=== PATIENT | female | born 1945 | race Hispanic/Latino ===

== ENCOUNTER 2017-12-20 07:54 | Inpatient (IN) | payer MEDICARE ==
[2017-12-18 09:00] LABS: BASOPHILS % 0.4 % (0.0-1.0); EOSINOPHILS # (AUTO) 0.5 (0.0-0.4); EOSINOPHILS % 6.9 % (0.0-6.0); HEMATOCRIT 35.3 % (34.2-44.1); HEMOGLOBIN 11.5 g/dL (12.0-16.0); LYMPHOCYTES # (AUTO) 2.1 (1.0-3.2); LYMPHOCYTES % 31.4 % (18.0-39.1); MEAN CORPUSCULAR HEMOGLOBIN 28.2 pg (28-32); MEAN CORPUSCULAR HGB CONC 32.6 g/dL (31-35); MEAN CORPUSCULAR VOLUME 86.5 fL (81-99); MONOCYTES # (AUTO) 0.6 (0.2-0.8); MONOCYTES % 9.1 % (4.4-11.3); NEUTROPHILS # (AUTO) 3.5 (2.1-6.9); NEUTROPHILS % 52.1 % (38.7-80.0); PLATELET COUNT 283 x10e3/uL (140-360); RED BLOOD COUNT 4.08 x10e6/uL (3.6-5.1); RED CELL DISTRIBUTION WIDTH 14.7 % (11.7-14.4)
--- NOTE | 2017-12-18 09:51 | Diagnostic Imaging Report ---
PROCEDURE: X-RAY CHEST, TWO VIEWS COMPARISON: None. INDICATIONS: preop bladder surgery FINDINGS: The lungs are well-inflated. No focal airspace consolidation, pleural effusion, or pneumothorax. Calcified granuloma in the right upper lung. Tortuosity and atherosclerotic calcification of the thoracic aorta with an otherwise normal cardiomediastinal contour. No acute osseous abnormality. Scoliotic curvature of the thoracolumbar spine with multilevel degenerative disc changes. CONCLUSION: No acute cardiopulmonary abnormality. Dictated by: Jeff Haney M.D. on 12/18/2017 at 9:53 Electronically approved by: Jeff Haney M.D. on 12/18/2017 at 9:53
[~2017-12-20] VITALS: Ht 157.5 cm; Wt 81.6 kg
[~2017-12-20 07:54] MED LIST: LOVASTATIN20 MG PO; METOPROLOL TART25 MG PO; MULTIVITAMINS1 EAC7 PO; PENICILLIN PO
--- OUTSIDE RECORDS SUMMARY | 2017-12-20 07:56 | XMS REPORT ---
Author Author [facility] Address Unknown Phone Unavailable Care Team Providers Care Script Reader Name Role Phone DONTE HUTSON Unavailable Unavailable Problems This patient has no known problems. Allergies, Adverse Reactions, Alerts This patient has no known allergies or adverse reactions. Medications This patient has no known medications. Results Test Description Test Time Test Comments Text Results Atomic Results Result Comments CHEST 2 VIEWS [place] [address] Patient Name: BELLA MONGE MR #: [id number] : 1945 Age/Sex: 72/F Req #: [id number] Adm Physician: Ordered by: DONTE HUTSON MD Report #: [id number] Location: OR Room/Bed: Procedure: [id number] DX/ CHEST 2 VIEWS Exam Date: 12/18/17 Exam Time: 923 REPORT STATUS: Signed PROCEDURE: X-RAY CHEST, TWO VIEWS COMPARISON: None. INDICATIONS: preop bladder surgery FINDINGS: The lungs are well-inflated. No focal airspace consolidation, pleural effusion, or pneumothorax. Calcified granuloma in the right upper lung. Tortuosity and atherosclerotic calcification of the thoracic aorta with an otherwise normal cardiomediastinal contour. No acute osseous abnormality. Scoliotic curvature of the thoracolumbar spine with multilevel degenerative disc changes. CONCLUSION: No acute cardiopulmonary abnormality. Dictated by: Be Powers M.D. on 12/18/2017 at 9:53 Electronically approved by: Be Powers M.D. on 12/18/2017 at 9:53 Dictated By: BE POWERS MD 2 Transcribed By: HUEY on 12/18/17952 COPY TO: DONTE HUTSON MD
[2017-12-20] MEDS ORDERED: CEFOXITIN SOD 1 GM VIAL ONE (08:28)
[2017-12-20] MEDS ORDERED: CLINDAMYCIN 600MG/D5W 50ML 50 ML IV ONE (08:28)
[2017-12-20] MEDS ORDERED: LISINOPRIL10 MG PO (08:35)
[2017-12-20] MEDS ORDERED: METHYLENE BLUE 1% INJ 10 ML VIAL INJ ONE (08:57)
[2017-12-20] MEDS ORDERED: IOPAMIDOL 610MG/1ML 300 MG/ML VIAL IV ONE (08:57)
[2017-12-20] MEDS ORDERED: BUPIVACAINE 0.25%/EPI 30ML SDV INJ ONE (08:57)
[2017-12-20] MEDS ORDERED: BACITRACIN 50,000 UNIT VIAL ONE (08:57)
[2017-12-20] MEDS ORDERED: SEVOFLURANE INHAL SOLN 250 ML PEN BTL ONE (11:51)
[2017-12-20] MEDS ORDERED: ROCURONIUM BROMIDE 10 MG/ML 5ML VIAL ONE (11:51)
[2017-12-20] MEDS ORDERED: DEXAMETHASONE SOD PHOS INJ 4 MG/ML VIAL ONE (11:51)
[2017-12-20] MEDS ORDERED: LIDOCAINE HCL 2% LOCAL INJ 5 ML SDV VIAL INJ ONE (11:51)
[2017-12-20] MEDS ORDERED: ONDANSETRON HCL INJ 2 MG/ML VIAL ONE (11:51)
[2017-12-20] MEDS ORDERED: PROPOFOL IV EMULSION 10 MG/ML 20 ML VIAL ONE (11:51)
[2017-12-20] MEDS ORDERED: HYDROMORPHONE 1MG/1ML INJ IV PRN (12:15)
[2017-12-20] MEDS ORDERED: PROMETHAZINE HCL (IM) 25 MG/ML VIAL IM PRN (12:15)
[2017-12-20] MEDS ORDERED: TRAMADOL HCL 50 MG TAB PO PRN (12:15)
[2017-12-20] MEDS ORDERED: ONDANSETRON HCL INJ 2 MG/ML VIAL IV PRN (12:15)
[2017-12-20] MEDS ORDERED: HYDROMORPHONE 2MG/ML INJ IV PRN (12:30)
[2017-12-20] MEDS ORDERED: ONDANSETRON HCL 4 MG ORAL DISINTEGRATING TAB SL PRN (12:30)
[2017-12-20] MEDS ORDERED: FENTANYL CITRATE/PF 100MCG/2 ML INJ ONE ×2 (12:40→14:44)
[2017-12-20] MEDS: D5.45%NS/KCL 20MEQ 1,000 ML IV SCH ×2 (16:30→22:12)
[2017-12-20] MEDS: METOPROLOL TARTRATE 25 MG TAB PO SCH (17:00)
[2017-12-20] MEDS: CEFOXITIN SOD 1 GM VIAL IV SCH ×2 (17:41→23:50)
[2017-12-20] MEDS ORDERED: CEFOXITIN 1GM/ DEXTROSE 50ML 50 ML IV SCH (18:00)
[2017-12-20 18:03] VITALS: BP 129/61
[2017-12-20 20:00] VITALS: BP 125/61
[2017-12-20 22:24] VITALS: BP 125/61
[2017-12-21] VITALS: BP 112/53
[2017-12-21 04:00] VITALS: BP 126/60
[2017-12-21 07:04] LABS: BASOPHILS % 0.1 % (0.0-1.0); EOSINOPHILS % 0.2 % (0.0-6.0); HEMATOCRIT 29.5 % (34.2-44.1); LYMPHOCYTES # (AUTO) 1.5 (1.0-3.2); LYMPHOCYTES % 13.4 % (18.0-39.1); MEAN CORPUSCULAR HEMOGLOBIN 28.5 pg (28-32); MEAN CORPUSCULAR HGB CONC 33.9 g/dL (31-35); MONOCYTES # (AUTO) 0.8 (0.2-0.8); NEUTROPHILS # (AUTO) 8.8 (2.1-6.9); NEUTROPHILS % 78.9 % (38.7-80.0); PLATELET COUNT 261 x10e3/uL (140-360); RED BLOOD COUNT 3.51 x10e6/uL (3.6-5.1); RED CELL DISTRIBUTION WIDTH 14.6 % (11.7-14.4)
[2017-12-21 07:31] LABS: BLOOD UREA NITROGEN 9 mg/dL (7-26); BUN/CREATININE RATIO 14 (6-25); CALCIUM 8.7 mg/dL (8.4-10.2); CARBON DIOXIDE 23 mmol/L (22-29); CHLORIDE 110 mmol/L (98-107); CREATININE, SERUM 0.65 mg/dL (0.57-1.11); EST GLOMERULAR FILTRATION RATE > 60 ML/MIN (60-); GLUCOSE 137 mg/dL (74-118); SODIUM 138 mmol/L (136-145)
[2017-12-21 08:03] VITALS: BP 117/57
[2017-12-21] MEDS: METOPROLOL TARTRATE 25 MG TAB PO SCH (08:09)
[2017-12-21] MEDS: D5.45%NS/KCL 20MEQ 1,000 ML IV SCH (08:09)
[2017-12-21] MEDS ORDERED: LISINOPRIL 20 MG TAB PO SCH (09:00)
--- NOTE | 2017-12-23 14:37 | Operative Report ---
DATE OF PROCEDURE: December 20, 2017 CASING SPLITTER: Dr. Deisy Root PREOPERATIVE DIAGNOSES 1. Large cystocele. 2. Potential for stress incontinence. POSTOPERATIVE DIAGNOSES 1. Large cystocele. 2. Potential for stress incontinence. OPERATIONS PERFORMED 1. Repair of large cystocele. 2. Utilization of the graft in cystocele repair. 3. Tubovaginal sling utilizing graft. 4. Cystourethroscopy with bilateral ureteral catheterization and retrograde ureteropyelography (separate procedure performed to evaluate the upper tracts). 5. Interpretation of retrograde ureteropyelography. 6. Supervision of fluoroscopy. No radiologist present. ANESTHESIA: General. COMPLICATIONS: None. CLINICAL SUMMARY: Ms. Guera Frias is a 72-year-old woman with the large cystocele. She has incontinence as well. She was brought for the above procedures. She is aware of the risks of bleeding, infection, injury to adjacent structures, potential need for catheterizations, need for additional procedures, and elected to proceed. She understands the potential for failure of the procedure and need for additional surgery. She understood all these risks and elected to proceed. OPERATIVE PROCEDURE IN DETAIL: Informed consent was verified. Guera Frias was properly identified, taken to operating room, placed on the operating table in supine position. Anesthesia was uneventfully begun. This patient was then carefully and gently repositioned in the dorsal lithotomy position with all pressure points well padded. Her genitalia and abdomen were shaved and perineum were shaved, prepared and draped in usual sterile fashion. Labial stay sutures were placed. Marcaine with epinephrine was utilized to infiltrate the anterior vaginal wall mucosa. Midline incision was made. Bilateral vaginal wall flaps were developed from the distal most extent of the urethra to the cephalad most extent from the anterior vaginal wall. We extended the dissection and dissected laterally. We then pierced the endopelvic fascia bilaterally taking care. Stay as laterally as possible to avoid injury to the periurethral neurovascular complexes. Once the space was developed, we utilized heavy Vicryl suture from the bladder neck to cephalad most extent of the anterior bladder wall dissection and performing and utilizing this Vicryl suture in interrupted fashion and performing plicating type of cystocele repair. This resulted in complete reduction of the cystocele. A dermis graft was then taken, soaked in antibiotic irrigant. We cut to shape. Heavy PDS sutures were then placed through each end in helical fashion. The bladder was drained with Gayle catheter and then, utilized the [employer]ocket [employer] needle system to perform the maneuver, first on the left side then on the right side. We hugged the posterior surface of the pubis and then pierced through the anterior abdominal wall. We then dragged the needle through the abdominal wall and dragging along with 1 pair of PDS suture strands. Once this was done on both sides, the graft was secured in proper position, utilizing chromic interrupted 3-0 chromic suture. This was done to prevent graft migration and folding. Once this was performed, copious irrigation with antibiotic irrigant was performed. We then trimmed the bladder wall minimally and approximated the national incision with heavy Vicryl suture in running fashion. We then utilized the Rocket [employer] lateral suture passer to take 1 strand of PDS suture and tunneled it suprapubically subcutaneously to join its contralateral counterpart. The sutures were then tied down to the level of the skin and a knot was allowed to fall deep within the suprapubic fat pad; thus, ensuring a non-lifting non-constricting pubovaginal sling. This graft supported the cystocele repair and extended to the distal most aspect of the urethra, also acting as a pubovaginal sling. The suprapubic stab wounds were irrigated with the antibiotic irrigant. Marcaine with epinephrine was used to also infiltrate circumferentially around these 2 incisions and those incisions were approximated with interrupted 4-0 Monocryl in subcuticular fashion. The Gayle catheter was removed. Cystoscopy was performed. Endoscopy revealed mild trabeculations. No tumors, no stones, no diverticula. Normally positioned and configured ureteral orifices were identified. An 8-Albanian catheter was used cannulate each ureter and retrograde ureteral pyelograms performed. Interpretation of retrograde ureteropyelography: Contrast was instilled in retrograde fashion bilaterally. There were no tumors, no stones, and no diverticula. Unobstructed drainage was observed bilaterally fluoroscopically. The cystoscope was withdrawn. Gayle catheter was placed. The vaginal packing was placed with antibiotic ointment. Bandage was placed over the suprapubic wounds. Labial stay sutures were removed and the patient was uneventfully reversed from anesthesia and taken to recovery room in stable condition. There were no complications to the procedure. Patient tolerated the procedure well. Sponge, needle, instrument counts were correct times 2 at the end of the case. Estimated blood loss was minimal. Postoperative instructions were given. Will follow patient up in the office. Job#: [id number] CQ
== END 2017-12-21 11:46 | disposition home or self-care (01) | DRG 748 ==
LOC: OR 07:54 → MED/SURG 13:54
PROVIDERS: ADMIT Internal Medicine; ATTEND Internal Medicine
PROC: BT141ZZ Fluoroscopy of Kidneys, Ureters and Bladder using Low Osmolar Contrast (ICD-10-PCS; 2017-12-20)
PROC: 0JUC0KZ Supplement of Pelvic Region Subcutaneous Tissue and Fascia with Nonautologous Tissue Substitute, Open Approach (ICD-10-PCS; principal; 2017-12-20 10:33)
PROC: 0USG0ZZ Reposition Vagina, Open Approach (ICD-10-PCS; 2017-12-20 10:33)
CPT/HCPCS: 36415; 71046; 74420; 80048; 85025; 93005; J0694; J1100; J2001; J2405